=== PATIENT | female | born 1975 | race Hispanic/Latino ===

== ENCOUNTER 2017-10-28 13:58 | Emergency (ER) | payer MEDICAID, OTHER ==
[2017-10-28 14:30] LABS: #Basophils 0.1 thou/uL (0.0-0.2); #Eosinphils 0.1 thou/uL (0.0-0.7); #Lymphocytes 3.1 thou/uL (1.20-3.40); #Monocytes 0.2 thou/uL (0.11-0.59); #Neutrophils 4.6 thou/uL (1.40-6.50); %Basophils 0.8 % (0.0-1.0); %Eosinophils 1.8 % (0.0-10.0); %Lymphocytes 37.9 % (21.0-51.0); %Monocytes 2.9 % (0.0-10.0); %Neutrophils 56.7 % (42.0-75.0); Hemoglobin 15.5 g/dL (12.0-16.0); Mean Corpuscular HGB CONC 34.4 g/dL (32.0-36.0); Mean Corpuscular Volume 87.2 fl (81.0-99.0); Mean Platelet Volume 5.9 fL (7.4-10.4); Platelet Count 380 thou/uL (130-400); RBC Distribution Width 11.4 % (11.5-14.5); Red Blood Cell (RBC) Count 5.19 mill/uL (4.20-5.40); White Blood Cell (WBC) Count 8.1 thou/uL (4.8-10.8)
[2017-10-28 14:53] LABS: ALT (SGPT) 139 U/L (8-55); AST (SGOT) 55 U/L (5-34); Albumin 4.5 g/dL (3.5-5.0); Alkaline Phosphatase 113 U/L (40-150); Anion Gap 10 mmol/L (10-20); BUN (Urea Nitrogen) 10 mg/dL (7.0-18.7); Bilirubin, Total 0.5 mg/dL (0.2-1.2); Calc. Creatinine Clearance 0 mL/min (70-130); Calcium 9.8 mg/dL (7.8-10.44); Carbon Dioxide 27 mmol/L (22-29); Chloride 102 mmol/L (98-107); Estimated GFR-MDRD 87; Globulin 3.4 g/dL (2.4-3.5); Glucose 258 mg/dL (70-105); Potassium 3.8 mmol/L (3.5-5.1); Protein, Total 7.9 g/dL (6.0-8.3); Sodium 135 mmol/L (136-145)
[2017-10-28 14:58] LABS: CKMB 1.5 ng/mL (0-6.6); Troponin I Less than 0.010 ng/mL (< 0.028)
--- NOTE | 2017-10-28 14:59 | RAD ---
PORTABLE CHEST 1 VIEW: Date: 10/28/17 Time: 1424 hours HISTORY: Chest pain. FINDINGS: Comparison made with exam of 11/04/16. The heart size is normal. No focal areas of consolidation, pneumothoraces, or pleural effusions are s een. IMPRESSION: No radiographic evidence of acute cardiopulmonary process. POS: [facility]
[2017-10-28] MEDS ORDERED: Mag-Al 1200 mg/1200 mg/30 ML UDCUP ONE (16:13)
[2017-10-28] MEDS ORDERED: Lidocaine Viscous Sol 2% 15 ml UD Cup ONE (16:13)
== END 2017-10-28 17:26 | disposition home or self-care (01) ==
LOC: ERS 13:58
DX: K21.0 Gastro-esophageal reflux disease with esophagitis (principal); F41.9 Anxiety disorder, unspecified; E03.9 Hypothyroidism, unspecified; E11.9 Type 2 diabetes mellitus without complications; I10 Essential (primary) hypertension; F31.9 Bipolar disorder, unspecified
CPT/HCPCS: 71045; 80053; 82553; 84484; 85025; 93005; 94760

== ENCOUNTER 2018-05-20 11:26 | Emergency (ER) | payer OTHER, SELFPAY ==
[2018-05-20 12:02] LABS: #Basophils 0.1 thou/uL (0.0-0.2); #Eosinphils 0.2 thou/uL (0.0-0.7); #Lymphocytes 3.2 thou/uL (1.20-3.40); #Monocytes 0.4 thou/uL (0.11-0.59); #Neutrophils 4.8 thou/uL (1.40-6.50); %Basophils 1.2 % (0.0-1.0); %Eosinophils 1.9 % (0.0-10.0); %Lymphocytes 36.7 % (21.0-51.0); %Monocytes 4.3 % (0.0-10.0); %Neutrophils 55.8 % (42.0-75.0); Hemoglobin 15.6 g/dL (12.0-16.0); Mean Corpuscular HGB CONC 33.4 g/dL (32.0-36.0); Mean Corpuscular Volume 86.9 fL (78.0-98.0); Mean Platelet Volume 6.1 fL (7.4-10.4); Platelet Count 383 thou/uL (130-400); RBC Distribution Width 11.3 % (11.5-14.5); Red Blood Cell (RBC) Count 5.39 mill/uL (4.20-5.40); White Blood Cell (WBC) Count 8.7 thou/uL (4.8-10.8)
[2018-05-20 12:05] LABS: Bilirubin Negative (Negative); Blood, Urine Negative (Negative); Clarity CLOUDY (Clear); Glucose, Urine (Dipstick) Negative (Negative); Leukocyte Negative (Negative); Nitrite Negative (Negative); Protein, Urine (Dipstick) Negative (Neg-Trace); Specific Gravity, Urine 1.023 (1.002-1.036); Urobilinogen 0.2 mg/dL (0.2-1.0)
[2018-05-20 12:12] LABS: ALT (SGPT) 65 U/L (8-55); AST (SGOT) 30 U/L (5-34); Albumin 4.5 g/dL (3.5-5.0); Alkaline Phosphatase 96 U/L (40-150); Anion Gap 14 mmol/L (10-20); BUN (Urea Nitrogen) 14 mg/dL (7.0-18.7); Bilirubin, Total 0.7 mg/dL (0.2-1.2); Calc. Creatinine Clearance 0 mL/min (70-130); Calcium 9.3 mg/dL (7.8-10.44); Carbon Dioxide 20 mmol/L (22-29); Chloride 104 mmol/L (98-107); Estimated GFR-MDRD Greater than 90; Globulin 3.5 g/dL (2.4-3.5); Glucose 118 mg/dL (70-105); Lipase 23 U/L (8-78); Potassium 4.1 mmol/L (3.5-5.1); Sodium 134 mmol/L (136-145)
--- NOTE | 2018-05-20 13:16 | RAD ---
ONE VIEW ABDOMEN: HISTORY: Constipation with burning with urination. FINDINGS: There are surgical clips in the right upper quadrant consistent with cholecystectomy. No evidence of pneumoperitoneum on the supine projection. No suspicious densities in the abdomen or pelvis. Bowel gas pattern is nonspecific. Scattered fecal material is noted throughout the colon. No evidence of colonic or small bowel distention. IMPRESSION: Nonspecific bowel gas pattern. POS: [facility]
== END 2018-05-20 14:07 | disposition home or self-care (01) ==
LOC: ERS 11:26
DX: K59.00 Constipation, unspecified (principal); E03.9 Hypothyroidism, unspecified; E11.9 Type 2 diabetes mellitus without complications; I10 Essential (primary) hypertension; F31.9 Bipolar disorder, unspecified; Z79.899 Other long term (current) drug therapy
CPT/HCPCS: 36415; 74018; 80053; 81003; 83690; 85025

== ENCOUNTER 2019-06-10 15:20 | Observation (INO) | payer BC, SELFPAY ==
[~2019-06-10 15:20] MED LIST: ISOVUE-370 76%-LOCM 1 ML ONE
[2019-06-10 16:08] LABS: #Lymphocytes 1.5 thou/uL (1.20-3.40); #Monocytes 0.4 thou/uL (0.11-0.59); #Neutrophils 11.5 thou/uL (1.40-6.50); %Basophils 0.2 % (0.0-1.0); %Eosinophils 0.4 % (0.0-10.0); %Lymphocytes 11.4 % (21.0-51.0); %Monocytes 3.1 % (0.0-10.0); Hemoglobin 14.9 g/dL (12.0-16.0); Mean Corpuscular Hemoglobin 29.9 pg (27.0-31.0); Mean Corpuscular Volume 85.3 fL (78.0-98.0); Mean Platelet Volume 6.1 fL (7.4-10.4); Platelet Count 378 thou/uL (130-400); RBC Distribution Width 11.3 % (11.5-14.5); Red Blood Cell (RBC) Count 4.98 mill/uL (4.20-5.40); White Blood Cell (WBC) Count 13.5 thou/uL (4.8-10.8)
--- NOTE | 2019-06-10 16:18 | RAD ---
Exam: Chest one view HISTORY:Chest pain Comparison: 10/28/2017 FINDINGS: Cardiac silhouette: Normal Aorta: Unremarkable Pulmonary vessels: Normal Costophrenic angles: Clear LUNGS: No masses or consolidation. Pneumothorax: None Osseous abnormalities: None IMPRESSION: No acute cardiopulmonary process.
[2019-06-10 16:32] LABS: ALT (SGPT) 79 U/L (8-55); AST (SGOT) 28 U/L (5-34); Albumin 4.8 g/dL (3.5-5.0); Alkaline Phosphatase 116 U/L (40-110); Anion Gap 14 mmol/L (10-20); BUN (Urea Nitrogen) 11 mg/dL (7.0-18.7); Bilirubin, Total 0.7 mg/dL (0.2-1.2); Calc. Creatinine Clearance 0 mL/min (70-130); Calcium 9.6 mg/dL (7.8-10.44); Carbon Dioxide 25 mmol/L (22-29); Chloride 100 mmol/L (98-107); Estimated GFR-MDRD 84; Globulin 3.1 g/dL (2.4-3.5); Glucose 157 mg/dL (70-105); Potassium 4.3 mmol/L (3.5-5.1); Protein, Total 7.9 g/dL (6.0-8.3); Sodium 135 mmol/L (136-145)
[2019-06-10 17:00] LABS: Bacteria/HPF 3+ HPF (None Seen); Bilirubin Negative (Negative); Blood, Urine Trace (Negative); Clarity Clear (Clear); Glucose, Urine (Dipstick) Normal (Negative); Leukocyte Negative Leu/uL (Negative); Mucous/LPF 1+ LPF (<2+); Nitrite Negative (Negative); Protein, Urine (Dipstick) 20 mg/dL (Neg-Trace); RBC/HPF 0-3 HPF (0-3); Squamous Epithelial 0-3 HPF (0-3); Urobilinogen Normal mg/dL (Less than 2); WBC/HPF 0-3 HPF (0-3)
[2019-06-10 17:01] LABS: Pregnancy Test - Urine (BHCG) Negative (Negative); Pregu Control Background? CLEAR/WHITE (CLR/WHITE); Pregu Control Bar Appear? YES (CONTROL BAR); Specific Gravity 1.029 (1.002-1.036)
--- NOTE | 2019-06-10 17:55 | CT ---
CT Abdomen Pelvis W Con: 06/10/2019 5:06 PM CLINICAL INFORMATION: Chest pain and epigastric abdominal pain COMPARISON: 09/20/2010 TECHNIQUE: Multiple contiguous axial images were obtained and a CT of the abdomen and pelvis with IV contrast. Oral contrast was administered. Coronal and sagittal reformats were performed. FINDINGS: Lower Chest: within normal limits. Abdomen: Liver: There is a 2.1 cm hypodense region in the anterior aspect of the right lobe of the liver that is poorly circumscribed. No obvious abnormality was seen in the liver in this location on the prior examination. There is diffuse fatty infiltration of the liver. Bile Ducts: Normal caliber. Gallbladder: Removed Pancreas: within normal limits. Spleen: within normal limits. Adrenals: within normal limits. Kidneys: within normal limits. Pelvis: Reproductive Organs: The patient is status post hysterectomy. A 3.7 cm hypodensity in the right pelvi s likely represents a right ovarian cyst/follicle. Ureters: within normal limits. Bladder: within normal limits. Peritoneum: No ascites or free air, no fluid collection. Bowel: Normal caliber. The appendix is prominent measuring up to 9 mm without surrounding stranding c hanges. Mesentery and Retroperitoneum: No enlarged mesenteric or retroperitoneal lymph nodes. Vessels: Normal. Abdominal Wall: within normal limits. Bones: Within normal limits IMPRESSION: 1. The appendix is upper limits of normal in size without surrounding stranding changes. Early acute appendicitis cannot be excluded. Correlate with white blood cell count and right lower quadrant tenderness. 2. Fatty liver 3. Nonspecific hepatic hypodensity. This could represent more focal fatty infiltration or a lesion in the liver. An MRI of the abdomen without and with contrast on a nonemergent outpatient basis is recommended.
[2019-06-10] MEDS ORDERED: Pantoprazole 40 MG VIAL ONE (18:20)
[2019-06-10] MEDS ORDERED: Ondansetron PF 4 MG/2 ML Vial ONE (18:20)
[2019-06-10] MEDS ORDERED: Piperacillin/Tazobactam 4.5 GM VIAL ONE (20:40)
[2019-06-10] MEDS ORDERED: Sodium Chloride 0.9% 100 ML ONE (20:40)
--- NOTE | 2019-06-10 22:59 | HP ---
CHIEF COMPLAINT: Abdominal pain. HISTORY OF PRESENT ILLNESS: Ms. Xiao is a 43-year-old woman, who began having epigastric abdominal pain yesterday afternoon shortly after lunch. This pain persisted through the night and today became bad and thus, she decided to come to the ER. She states that the pain in the epigastrium is dull, but every once a while she will have a sharp pain in the right lower abdomen. She had one episode of nausea and vomiting yesterday. No fevers or chills, but has had a poor appetite today. She has not really eaten anything since yesterday due to the pain. No ill contacts or unusual ingestion. She states that the pain is alleviated somewhat by lying on her left side or curling up or walking around. It is made worse by eating or when she hit a bump on the road on her way to the hospital. PAST MEDICAL HISTORY: Type 2 diabetes, hypothyroidism. PAST SURGICAL HISTORY: and hysterectomy with salpingo-oophorectomy and laparoscopic cholecystectomy. FAMILY HISTORY: Diabetes, heart disease, ovarian cancer in a sister and cervical cancer. ALLERGIES: NO KNOWN DRUG ALLERGIES. OUTPATIENT MEDICATIONS: Include: 1. Synthroid. 2. Zoloft. 3. Abilify. REVIEW OF SYSTEMS: Ten system review of systems is negative except per HPI. PHYSICAL EXAMINATION: VITAL SIGNS: The patient is afebrile in the emergency room with normal vital signs. HEENT: Unremarkable. NECK: Supple without lymphadenopathy or thyroid nodules. HEART: Regular in its rate and rhythm without murmurs, rubs, or gallops. LUNGS: Clear to auscultation bilaterally. ABDOMEN: Soft and nondistended. She is diffusely tender to palpation, but more so in the right lower quadrant with positive rebound in this area. EXTREMITIES: Warm and well perfused without edema. NEURO: No focal deficits. PSYCHIATRIC: Alert, oriented, and appropriate. LABORATORY DATA: White count is elevated at 13.5 with a left shift of 85% neutrophils. Electrolytes are unremarkable. AST is normal at 28, ALT is mildly elevated at 79, alkaline phosphatase is mildly elevated at 116. Urinalysis has trace blood, 3+ bacteria. CT images are reviewed and I agree with the written report. The appendix is mildly prominent and close to 9 mm in diameter, but there is no periappendiceal stranding or secondary changes associated with appendicitis. She does have a right adnexal cyst. No other acute changes are noted. ASSESSMENT: Right lower quadrant tenderness and diffuse abdominal pain with equivocal CT for appendicitis. I discussed the patient's treatment options with her. These include appendectomy, observation or antibiotics. The relative pros and cons of each approach were discussed in detail with the patient and her . The pros of appendectomy on this would likely to be accomplished laparoscopically and with the definitive treatment and diagnosis. We could be removing a normal appendix and her pain could persist as it was due to another etiology such as her ovarian cyst. Inherent risks of surgery were also discussed. Pros and cons of observation were discussed. The advantages are possible avoidance of surgery with disadvantage of possible worsening of appendicitis. The use of antibiotics to treat early appendicitis was discussed as well. This has been shown to have about an 85% success rate. However, there is still a potential for worsening appendicitis and perforation with its complications. The Advantage is a high likelihood of avoiding surgery. Disadvantage is progression of appendicitis. After discussion, the patient and her decided that they would like to try antibiotic therapy. If her symptoms worsen overnight or she spikes fevers and has a worsening exam, then appendectomy can still be performed. I placed her on a clear liquid diet, was scheduled Zosyn and p.r.n. Tylenol, and will monitor her clinically. Job ID: [id number]
[2019-06-11] MEDS ORDERED: Ondansetron PF 4 MG/2 ML Vial IVP PRN (00:26)
[2019-06-11] MEDS ORDERED: Promethazine 25 MG TAB PO PRN ×2 (00:27→00:30)
[2019-06-11] MEDS ORDERED: Promethazine HCl 25 MG/ML VIAL SLOW IVP PRN (00:27)
[2019-06-11] MEDS ORDERED: Acetaminophen 325 MG TAB PO PRN ×2 (00:28→00:30)
[2019-06-11] MEDS ORDERED: Acetaminophen 650 MG Suppository PR PRN (00:29)
[2019-06-11] MEDS ORDERED: Promethazine HCl 25 MG/ML VIAL IM/IV PRN (00:29)
[2019-06-11] MEDS ORDERED: Acetaminophen 325 MG Suppository PR PRN (00:30)
[2019-06-11] MEDS ORDERED: Acetaminophen 1,000 MG in Premix Bag 1 BAG IVPB PRN (00:31)
[2019-06-11] MEDS: D5 1/2 NS w/20 mEq KCL 1,000 ML IV SCH ×2 (01:43→10:57)
[2019-06-11 02:08] VITALS: BMI 33.3
[2019-06-11] MEDS ORDERED: Piperacillin/Tazobactam 3.375 GM in Sodium Chloride 0.9% 100 ML IVPB SCH (03:00)
[2019-06-11 04:58] LABS: #Lymphocytes 1.4 thou/uL (1.20-3.40); #Monocytes 0.4 thou/uL (0.11-0.59); #Neutrophils 6.3 thou/uL (1.40-6.50); %Basophils 0.5 % (0.0-1.0); %Eosinophils 0.3 % (0.0-10.0); %Lymphocytes 17.4 % (21.0-51.0); %Monocytes 4.7 % (0.0-10.0); %Neutrophils 77.1 % (42.0-75.0); Hemoglobin 13.6 g/dL (12.0-16.0); Mean Corpuscular HGB CONC 34.7 g/dL (32.0-36.0); Mean Corpuscular Volume 86.5 fL (78.0-98.0); Mean Platelet Volume 6.1 fL (7.4-10.4); Platelet Count 346 thou/uL (130-400); RBC Distribution Width 11.3 % (11.5-14.5); Red Blood Cell (RBC) Count 4.54 mill/uL (4.20-5.40); White Blood Cell (WBC) Count 8.2 thou/uL (4.8-10.8)
[2019-06-11] MEDS: Piperacillin/Tazobactam 3.375 GM in Sodium Chloride 0.9% 100 ML IVPB SCH ×3 (05:10→16:09)
[2019-06-11 05:16] LABS: Anion Gap 13 mmol/L (10-20); BUN (Urea Nitrogen) 7 mg/dL (7.0-18.7); Calc. Creatinine Clearance 151 mL/min (70-130); Calcium 8.7 mg/dL (7.8-10.44); Carbon Dioxide 22 mmol/L (22-29); Chloride 104 mmol/L (98-107); Estimated GFR-MDRD Greater than 90; Glucose 218 mg/dL (70-105); Sodium 135 mmol/L (136-145)
[2019-06-11] MEDS ORDERED: FLU VACC QS2019-20(6MOS UP)/PF 60 MCG/0.5 ML SYRINGE IM ONE (09:00)
[2019-06-11 15:25] VITALS: BP 112/63; TEMP 98
== END 2019-06-11 18:00 | disposition home or self-care (01) ==
LOC: ERS 15:20 → SURG B 18:40
PROVIDERS: ADMIT Surgery; ATTEND Surgery
DX: R10.31 Right lower quadrant pain (principal); E11.9 Type 2 diabetes mellitus without complications; E03.9 Hypothyroidism, unspecified; K76.0 Fatty (change of) liver, not elsewhere classified; Z79.2 Long term (current) use of antibiotics; Z79.899 Other long term (current) drug therapy
CPT/HCPCS: 36415; 71045; 74177; 80048; 80053; 81003; 81015; 81025; 83690; 84484; 85025; 93005; 94760; 96361; 96365; 96366; 96375; 96376; C9113; G0378; J2405; J2543; J3490; Q9966

== ENCOUNTER 2020-03-03 09:15 | Emergency (ER) | payer BC ==
[2020-03-03 10:13] LABS: #Basophils 0.1 thou/uL (0.0-0.2); #Eosinphils 0.1 thou/uL (0.0-0.7); #Lymphocytes 2.3 thou/uL (1.20-3.40); #Monocytes 0.3 thou/uL (0.11-0.59); #Neutrophils 4.4 thou/uL (1.40-6.50); %Basophils 1.4 % (0.0-1.0); %Eosinophils 1.2 % (0.0-10.0); %Monocytes 4.1 % (0.0-10.0); %Neutrophils 61.3 % (42.0-75.0); Hemoglobin 15.9 g/dL (12.0-16.0); Mean Corpuscular HGB CONC 34.8 g/dL (32.0-36.0); Mean Corpuscular Hemoglobin 30.6 pg (27.0-31.0); Mean Platelet Volume 6.4 fL (7.4-10.4); Platelet Count 307 thou/uL (130-400); RBC Distribution Width 11.4 % (11.5-14.5); White Blood Cell (WBC) Count 7.1 thou/uL (4.8-10.8)
[2020-03-03 10:32] LABS: ALT (SGPT) 122 U/L (8-55); AST (SGOT) 57 U/L (5-34); Albumin 4.5 g/dL (3.5-5.0); Alkaline Phosphatase 109 U/L (40-110); Anion Gap 16 mmol/L (10-20); BUN (Urea Nitrogen) 13 mg/dL (7.0-18.7); Bilirubin, Total 0.6 mg/dL (0.2-1.2); Calc. Creatinine Clearance 0 mL/min (70-130); Calcium 9.5 mg/dL (7.8-10.44); Carbon Dioxide 21 mmol/L (22-29); Chloride 101 mmol/L (98-107); Estimated GFR-MDRD 87; Globulin 3.5 g/dL (2.4-3.5); Glucose 273 mg/dL (70-105); Lipase 29 U/L (8-78); Potassium 3.9 mmol/L (3.5-5.1); Sodium 134 mmol/L (136-145)
[2020-03-03 10:37] LABS: Bilirubin Negative (Negative); Blood, Urine Trace (Negative); Glucose, Urine (Dipstick) 500 mg/dL (Negative); Ketone, Urine 15 mg/dL (Negative); Leukocyte Negative (Negative); Nitrite Negative (Negative); Protein, Urine (Dipstick) Negative (Neg-Trace); Specific Gravity, Urine 1.025 (1.005-1.030); Urobilinogen 0.2 mg/dL (Less than 2); pH, Urine 5.5 (5.0-9.0)
[2020-03-03 10:38] LABS: Clarity Clear (Clear); Pregnancy Test - Urine (BHCG) Negative (Negative); Pregu Control Background? CLEAR/WHITE (CLR/WHITE); Pregu Control Bar Appear? YES (CONTROL BAR); Specific Gravity 1.025 (1.002-1.036)
[2020-03-03 10:42] LABS: Bacteria/HPF None Seen HPF (None Seen); RBC/HPF None Seen HPF (0-3); Squamous Epithelial 0-3 HPF (0-3); WBC/HPF None Seen HPF (0-3)
[2020-03-03] MEDS ORDERED: Iopamidol 370 76% 50 ML VIAL FS ONE (11:14)
[2020-03-03] MEDS ORDERED: Iopamidol-370 76% 500 ML 1 ML ONE (11:14)
--- NOTE | 2020-03-03 12:32 | CT ---
CT Abdomen Pelvis W Con: 03/03/2020 9:46 AM CLINICAL INFORMATION: Right lower quadrant abdominal pain for 2 weeks COMPARISON: 06/10/2019, 11/04/2016 TECHNIQUE: Multiple contiguous axial images were obtained and a CT of the abdomen and pelvis with IV contrast. Oral contrast was administered. Coronal and sagittal reformats were performed. FINDINGS: Lower Chest: within normal limits. Abdomen: Liver: There is diffuse fatty infiltration of the liver. There is a stable 2.1 cm lesion in the anter ior aspect of the right lobe of the liver. This could represent a hemangioma. Bile Ducts: Normal caliber. Gallbladder: Removed Pancreas: within normal limits. Spleen: within normal limits. Adrenals: within normal limits. Kidneys: within normal limits. Pelvis: Reproductive Organs: Uterus has been removed. There are 2 cystic structures in the right pelvis measu ring up to 4.0 cm in size which likely represent ovarian cysts/follicles. Ureters: within normal limits. Bladder: within normal limits. Peritoneum: No ascites or free air, no fluid collection. Bowel: Normal caliber. Normal appendix. Mesentery and Retroperitoneum: No enlarged mesenteric or retroperitoneal lymph nodes. Vessels: Normal. Abdominal Wall: within normal limits. Bones: Within normal limits IMPRESSION: 1. Fatty liver 2. Hypodensity in the anterior liver may represent a hemangioma 3. Right ovarian cysts/follicles
== END 2020-03-03 13:48 | disposition home or self-care (01) ==
LOC: ERS 09:15
DX: N83.201 Unspecified ovarian cyst, right side (principal); E03.9 Hypothyroidism, unspecified; I10 Essential (primary) hypertension; E11.9 Type 2 diabetes mellitus without complications; F31.9 Bipolar disorder, unspecified; Z79.84 Long term (current) use of oral hypoglycemic drugs; Z79.899 Other long term (current) drug therapy
CPT/HCPCS: 74177; 80053; 81003; 81015; 81025; 82010; 83690; 85025

== ENCOUNTER 2022-04-25 07:56 | Emergency (ER) | payer BC ==
[2022-04-25 08:37] LABS: #Basophils 0.1 thou/uL (0.0-0.2); #Eosinphils 0.1 thou/uL (0.0-0.7); #Lymphocytes 2.9 thou/uL (1.20-3.40); #Monocytes 0.3 thou/uL (0.11-0.59); #Neutrophils 4.2 thou/uL (1.40-6.50); %Basophils 1.4 % (0.0-1.0); %Eosinophils 1.8 % (0.0-10.0); %Lymphocytes 38.3 % (21.0-51.0); %Monocytes 3.7 % (0.0-10.0); %Neutrophils 54.9 % (42.0-75.0); Hemoglobin 15.9 g/dL (12.0-16.0); Mean Corpuscular HGB CONC 34.2 g/dL (32.0-36.0); Mean Corpuscular Volume 87.8 fL (78.0-98.0); Platelet Count 367 thou/uL (130-400); RBC Distribution Width 11.4 % (11.5-14.5); Red Blood Cell (RBC) Count 5.31 mill/uL (4.20-5.40); White Blood Cell (WBC) Count 7.6 thou/uL (4.8-10.8)
[2022-04-25 08:49] LABS: Bacteria/HPF None Seen HPF (None Seen); Bilirubin Negative (Negative); Blood, Urine Negative (Negative); Clarity Clear (Clear); Glucose, Urine (Dipstick) Greater than 1000 mg/dL (Negative); Ketone, Urine Negative (Negative); Leukocyte Negative Leu/uL (Negative); Nitrite Negative (Negative); Protein, Urine (Dipstick) 20 mg/dL (Neg-Trace); RBC/HPF 0-3 HPF (0-3); Specific Gravity, Urine 1.042 (1.002-1.036); Urobilinogen Normal mg/dL (Less than 2); WBC/HPF 0-3 HPF (0-3); pH, Urine 5.5 (5.0-9.0)
[2022-04-25 08:55] LABS: Pregnancy Test - Urine (BHCG) Negative (Negative); Pregu Control Background? CLEAR/WHITE (CLR/WHITE); Pregu Control Bar Appear? YES (CONTROL BAR); Specific Gravity 1.042 (1.002-1.036)
[2022-04-25] MEDS ORDERED: Iopamidol-370 76% 500 ML 1 ML ONE (09:17)
[2022-04-25 09:25] LABS: Albumin 4.5 g/dL (3.5-5.0)
[2022-04-25 09:26] LABS: Chloride 101 mmol/L (98-107); Potassium 4.4 mmol/L (3.5-5.1); Sodium 133 mmol/L (136-145)
[2022-04-25 09:27] LABS: Calcium 9.7 mg/dL (7.8-10.44)
[2022-04-25 09:28] LABS: Globulin 3.8 g/dL (2.4-3.5); Protein, Total 8.3 g/dL (6.0-8.3)
[2022-04-25 09:29] LABS: Anion Gap 20 mmol/L (10-20); Bilirubin, Total 0.6 mg/dL (0.2-1.2); Carbon Dioxide 16 mmol/L (22-29)
[2022-04-25 09:30] LABS: Alkaline Phosphatase 111 U/L (40-110)
[2022-04-25 09:31] LABS: Calc. Creatinine Clearance 0 mL/min (70-130); Estimated GFR 93; Glucose 351 mg/dL (70-105)
[2022-04-25 09:32] LABS: BUN (Urea Nitrogen) 11 mg/dL (7.0-18.7)
[2022-04-25 09:33] LABS: ALT (SGPT) 76 U/L (8-55); AST (SGOT) 37 U/L (5-34)
[2022-04-25] MEDS ORDERED: Ondansetron PF 4 MG/2 ML Vial ONE (09:52)
[2022-04-25] MEDS ORDERED: Dicyclomine 20 MG/2 ML VIAL ONE (09:52)
== END 2022-04-25 12:47 | disposition home or self-care (01) ==
LOC: ERS 07:56
DX: N83.8 Other noninflammatory disorders of ovary, fallopian tube and broad ligament (principal); E11.9 Type 2 diabetes mellitus without complications; I10 Essential (primary) hypertension; Z79.899 Other long term (current) drug therapy
CPT/HCPCS: 36415; 74177; 80053; 81003; 81025; 83690; 85025; 94760; J2405; Q9967

== ENCOUNTER 2022-08-06 17:55 | Emergency (ER) | payer BC | END 2022-08-06 19:36 | disposition home or self-care (01) | LOC: ERS 17:55 | DX: U07.1 COVID-19 (principal) | CPT/HCPCS: 71045 ==

== ENCOUNTER 2024-06-03 10:32 | Emergency (ER) | payer BC | END 2024-06-03 12:03 | disposition home or self-care (01) | LOC: ERS 10:32 | DX: L53.9 Erythematous condition, unspecified (principal); E11.9 Type 2 diabetes mellitus without complications; Z75.3 Unavailability and inaccessibility of health-care facilities | CPT/HCPCS: 99283 ==

== ENCOUNTER 2024-08-12 12:36 | Emergency (ER) | payer BC ==
[2024-08-12] MEDS ORDERED: Ketorolac Tromethamine 30 MG (1 mL) VIAL ONE (13:31)
[2024-08-12] MEDS ORDERED: Ondansetron PF 4 MG/2 ML Vial ONE (13:31)
[2024-08-12 14:04] LABS: #Basophils 0.07 10x3/uL (0.0-0.2); %Basophils 0.9 % (0.0-1.0); %Lymphocytes 32.9 % (21.0-51.0); %Monocytes 5.5 % (0.0-10.0); Hematocrit 46.7 % (36.0-47.0); Hemoglobin 16.4 g/dL (12.0-16.0); Mean Corpuscular HGB CONC 35.1 g/dL (32.0-36.0); Mean Corpuscular Hemoglobin 29.7 pg (27.0-31.0); Mean Corpuscular Volume 84.4 fL (78.0-98.0); Mean Platelet Volume 9.2 fL (7.4-10.4); Platelet Count 352 10x3/uL (130-400); RBC Distribution Width 12.1 % (11.5-14.5); Red Blood Cell (RBC) Count 5.53 mill/uL (4.20-5.40)
[2024-08-12 14:19] LABS: BHCG - Serum Negative (NEGATIVE); Pregs Control Background? CLEAR/WHITE (CLR/WHITE); Pregs Control Bar Appear? YES (CONTROL BAR)
[2024-08-12 14:23] LABS: Calc. Creatinine Clearance 0 mL/min (70-130); Estimated GFR 112
[2024-08-12 14:25] LABS: ALT (SGPT) 148 U/L (8-55); AST (SGOT) 70 U/L (5-34); Albumin 4.3 g/dL (3.5-5.0); Alkaline Phosphatase 99 U/L (40-110); Anion Gap 16 mmol/L (10-20); BUN (Urea Nitrogen) 12 mg/dL (7.0-18.7); Bilirubin, Total 0.6 mg/dL (0.2-1.2); Calcium 9.9 mg/dL (7.8-10.44); Carbon Dioxide 23 mmol/L (22-29); Chloride 103 mmol/L (98-107); Globulin 4.2 g/dL (2.4-3.5); Glucose 301 mg/dL (70-105); Lipase 34 U/L (8-78); Potassium 4.2 mmol/L (3.5-5.1); Protein, Total 8.5 g/dL (6.0-8.3); Sodium 138 mmol/L (136-145)
[2024-08-12 14:48] LABS: Bacteria/HPF None Seen HPF (None Seen); Bilirubin Negative (Negative); Blood, Urine Negative (Negative); CAUTI Indications for Culture Fever or rigors; Clarity Clear (Clear); Glucose, Urine (Dipstick) Greater than 1000 mg/dL (Negative); Ketone, Urine Negative (Negative); Leukocyte Negative Leu/uL (Negative); Nitrite Negative (Negative); Protein, Urine (Dipstick) Negative (Neg-Trace); RBC/HPF 0-3 HPF (0-3); Specific Gravity, Urine 1.034 (1.002-1.036); Urobilinogen Normal mg/dL (Less than 2); WBC/HPF 0-3 HPF (0-3); pH, Urine 5.5 (5.0-9.0)
[2024-08-12 14:54] LABS: Urine Culture Reflex No No
[2024-08-12] MEDS ORDERED: Iopamidol-370 76% 500 ML MDV (1 ML CHARGE) ONE (15:51)
== END 2024-08-12 15:23 | disposition home or self-care (01) ==
LOC: ERS 12:36
DX: M54.50 Low back pain, unspecified (principal); E11.9 Type 2 diabetes mellitus without complications
CPT/HCPCS: 36415; 74177; 80053; 81001; 83690; 84703; 85025; 96361; 96374; 96375; J1885; J2405; Q9967

== ENCOUNTER 2024-08-14 01:58 | Emergency (ER) | payer BC ==
[2024-08-14] MEDS ORDERED: diphenhydrAMINE 50 MG/ML VIAL ONE (02:18)
[2024-08-14] MEDS ORDERED: Acetaminophen 500 MG TAB ONE (02:18)
[2024-08-14] MEDS ORDERED: methylPREDNISolone Sod Succ/PF 125 MG/2 ML VIAL ONE (02:18)
[2024-08-14] MEDS ORDERED: Metoclopramide HCl 10 MG (2 mL) VIAL ONE (02:18)
[2024-08-14 02:37] LABS: #Basophils 0.07 10x3/uL (0.0-0.2); %Basophils 0.9 % (0.0-1.0); %Eosinophils 2.3 % (0.0-10.0); %Lymphocytes 29.8 % (21.0-51.0); %Monocytes 5.1 % (0.0-10.0); %Neutrophils 61.1 % (42.0-75.0); Hematocrit 47.3 % (36.0-47.0); Hemoglobin 16.6 g/dL (12.0-16.0); Mean Corpuscular HGB CONC 35.1 g/dL (32.0-36.0); Mean Corpuscular Hemoglobin 29.4 pg (27.0-31.0); Mean Corpuscular Volume 83.7 fL (78.0-98.0); Mean Platelet Volume 8.9 fL (7.4-10.4); Platelet Count 338 10x3/uL (130-400); RBC Distribution Width 11.9 % (11.5-14.5); Red Blood Cell (RBC) Count 5.65 mill/uL (4.20-5.40)
[2024-08-14 02:53] LABS: ALT (SGPT) 133 U/L (8-55); AST (SGOT) 50 U/L (5-34); Albumin 4.5 g/dL (3.5-5.0); Alkaline Phosphatase 103 U/L (40-110); Anion Gap 16 mmol/L (10-20); BUN (Urea Nitrogen) 11 mg/dL (7.0-18.7); Bilirubin, Total 0.5 mg/dL (0.2-1.2); Calc. Creatinine Clearance 0 mL/min (70-130); Calcium 9.8 mg/dL (7.8-10.44); Carbon Dioxide 23 mmol/L (22-29); Chloride 98 mmol/L (98-107); Estimated GFR 113; Globulin 4.5 g/dL (2.4-3.5); Glucose 325 mg/dL (70-105); Lipase 32 U/L (8-78); Potassium 4.3 mmol/L (3.5-5.1); Sodium 133 mmol/L (136-145)
[2024-08-14 03:27] LABS: Bacteria/HPF None Seen HPF (None Seen); Bilirubin Negative (Negative); Blood, Urine Negative (Negative); CAUTI Indications for Culture Dysuria,urgency,freq; Clarity Clear (Clear); Glucose, Urine (Dipstick) Greater than 1000 mg/dL (Negative); Ketone, Urine 10 mg/dL (Negative); Leukocyte Negative Leu/uL (Negative); Nitrite Negative (Negative); Protein, Urine (Dipstick) Negative (Neg-Trace); RBC/HPF 0-3 HPF (0-3); Specific Gravity, Urine 1.035 (1.002-1.036); Squamous Epithelial 0-3 HPF (0-3); Urobilinogen Normal mg/dL (Less than 2); WBC/HPF 0-3 HPF (0-3); pH, Urine 5.5 (5.0-9.0)
[2024-08-14 03:31] LABS: Urine Culture Reflex No No
== END 2024-08-14 03:43 | disposition home or self-care (01) ==
LOC: ERS 01:58
DX: E11.65 Type 2 diabetes mellitus with hyperglycemia (principal); R11.2 Nausea with vomiting, unspecified; R51.9 Headache, unspecified; Z79.899 Other long term (current) drug therapy
CPT/HCPCS: 80053; 81001; 83690; 85025; 87428; 96365; 96375; J1200; J2765; J2919